=== PATIENT | male | born 1965 | race African-American/Black ===

== ENCOUNTER → 2017-01-11 | Outpatient (CLI) | payer MEDICAID ==
[~2017-01-11] MED LIST: ASPIRIN (CHILDR81 MG PO; BRILINTA90 MG PO; COREG6.25 MG PO; GLUCOPHAGE XR750 M1 PO; GLUCOTROL10 MG PO; HYDRODIURIL25 MG PO; ISONIAZID300 MG PO; LIPITOR80 MG PO; LOVASTATIN40 MG PO; MOBIC15 MG PO; NICODERM CQ1 EAC2 TRANS; TRESIBA FL200 UNIT/1 SUB-Q; VASOTEC10 MG PO; VITAMIN B-650 MG PO
[2017-01-11 12:03] LABS: ALBUMIN 4.2 gm/dL (3.5-5.0); ALK PHOS 104 IU/L (33-138); ALT 39 IU/L (12-78); ANION GAP 8.2 (10.0-19.0); AST 24 IU/L (10-40); BLOOD UREA NITROGEN 15 mg/dL (6-24); CALCIUM 9.1 mg/dL (8.5-10.5); CHLORIDE 105 mMol/L (96-110); CO2 32 mMol/L (22-32); CREATININE 0.9 mg/dL (0.6-1.3); ESTIMATED GFR (MDRD EQUATION) > 60; POTASSIUM 4.2 mMol/L (3.7-5.1); SODIUM 141 mMol/L (135-145); TOTAL BILIRUBIN 0.7 mg/dL (0.0-1.5); TOTAL PROTEIN 7.8 g/dL (6.0-8.4)
== END | disposition disaster alternative care site (69) ==
LOC: GLAB 11:09
PROVIDERS: Psychiatry & Neurology Neurology
DX: Z02.89 Encounter for other administrative examinations (principal); Z11.59 Encounter for screening for other viral diseases; E11.9 Type 2 diabetes mellitus without complications; A51.1 Primary anal syphilis

== ENCOUNTER → 2017-03-04 | Outpatient (CLI) | payer MEDICARE, MEDICAID | END | disposition disaster alternative care site (69) | LOC: GRAD 07:59 | DX: M25.562 Pain in left knee (principal); S81.012A Laceration without foreign body, left knee, initial encounter; M25.462 Effusion, left knee ==

== ENCOUNTER → 2017-03-18 | Outpatient (CLI) | payer MEDICARE, MEDICAID ==
[2017-03-18 11:21] LABS: CPK 151 IU/L (35-332)
== END | disposition disaster alternative care site (69) ==
LOC: LNHI 11:00
PROVIDERS: Internal Medicine Cardiovascular Disease
DX: Z01.818 Encounter for other preprocedural examination (principal); E78.5 Hyperlipidemia, unspecified; I10 Essential (primary) hypertension; R76.11 Nonspecific reaction to tuberculin skin test without active tuberculosis

== ENCOUNTER 2017-03-19 07:44 | Outpatient (CLI) | payer MEDICARE, MEDICAID ==
[~2017-03-19] VITALS: Ht 185.4 cm; Wt 76.0 kg
--- NOTE | ~2017-03-19 | CATH ---
Cardiac Diagnostic + PCI Report Demographics Patient Name BANDAR Quezada Gender Male Date of 1965 Age 52 year(s) Patient Number [id number] Date of Study 03/19/2017 Visit Number [id number] Room Number [id number] [place] [id number] Ht 185.42 cm Wt 74.7 kg Referring Ulises Barb Alejandra Primary Physician Physician TEO Performing Efstratiou Secondary Physician Physician Renee Quezada MD Diagnostic Efstratiou Assisting Physician Physician Renee Quezada MD Interventional Efstratiou Physician Insurance Advisor Physician Renee Quezada MD Findings and Conclusions Diagnostic Findings and Conclusion Long RCA stenosis. Functionally occluded LAD with R to L collaterals. Non critical Circ stenosis. Diagnostic Recommendations PCI to LAD. Stress test for RCA ischemia in 1 month. Interventional Findings and Conclusion Successful CARMEN to LAD. Interventional Recommendations ASA and Ticagrelor x 3 months before knee operation. Procedure Description The patient was brought to the diagnostic cardiac catheterization-EP laboratory in the fasting, non-sedated state. Informed consent was obtained in the written and verbal form after the risks and benefits were explained. The patient had no further questions and agreed to proceed. The planned puncture-incision site(s) were shaved and prepped with ChloraPrep and draped in the usual sterile manner. Conscious sedation, supplemental oxygen, and pain control medications were delivered by a registered nurse under physician guidance. Surface ECG rhythm, blood pressure measurement, and pulse oximetry were monitored throughout the procedure. Arterial access. The access site was infiltrated with lidocaine. The vessel was entered with the Seldinger technique. A sheath was advanced into the vessel and used for catheter placement. Selective left coronary angiography. A catheter was advanced into the left coronary vessel ostium under Fluoroscopic guidance. Contrast was injected by hand. Images were obtained in multiple projections. Selective right coronary angiography. A catheter was advanced into the right coronary vessel ostium under fluoroscopic guidance. Contrast was injected by hand. Images were obtained in multiple projections. Left heart catheterization. A catheter was advanced across the aortic valve to the left ventricle under fluoroscopic guidance. Resting hemodynamics were obtained. Angioplasty and Stent Placement: A guiding catheter was used to intubate the vessel. A 0.14 wire was then used to cross the lesion. A balloon catheter was placed across the lesion and inflated. The balloon catheter was then removed. A Drug Eluting Stent was placed and inflated. Post placement angiograms were performed. Arterial artery hemostasis was achieved. The patient was transferred to a regular nursing floor via cart accompanied by a nurse. The patient left the laboratory in stable condition. Diagnostic Cath Status: Elective Interventional Cath Status: Elective Procedure Procedure Type Diagnostic procedure:Angiography:, Coronary Angios PCI procedure:Drug Eluting Coronary Stent:, LAD Indications: Abnormal ECG and Abnormal Echo. The procedure was explained in detail to the patient. Risks, complications and alternative treatments were reviewed. Written consent was obtained. Medications Reviewed with Patient prior to Procedure. Angiographic Findings Dominance: Right Cardiac Arteries and Lesion Findings LMCA: Normal (0% Stenosis). LAD: Lesion on Mid LAD: Proximal subsection.99% stenosis 28 mm length reduced to 0%. Pre procedure JOANN I flow was noted. Post Procedure JOANN III flow was present. The guidewire cross was successful.The lesion was diagnosed as a high risk lesion.Culprit lesion. Treatment results:Interventional treatment was successful. Devices used - Whisper Wire .014 x 190. Number of passes: 1. - Emerge Balloon 2.5 x 12. 1 inflation(s) to a max pressure of: 14 hanna. - Promus Premier 3.0 x 28 Stent. 1 inflation(s) to a max pressure of: 14 hanna. - NC Emerge Balloon 3.25 x 15. 2 inflation(s) to a max pressure of: 20 hanna. Lesion on Prox LAD: 30% stenosis . LCx: Lesion on Mid CX: 30% stenosis . Lesion on 1st Ob Ashley% stenosis . RCA: Lesion on Prox RCA: 75% stenosis . Lesion on Mid RCA: 60% stenosis . Lesion on Dist RCA: 60% stenosis . Lesion on R PDA: 50% stenosis . Coronary Tree Procedure Data Procedure Date Date: 03/19/2017Start: 11:03 AMEnd: 11:46 AM Entry Locations - Retrograde Percutaneous access was performed through the Right Radial artery (Primary location). A 6 Fr sheath was inserted. Hemostasis was successfully obtained using Mechanical Compression. Closure Comments: R band with 15 cc air deployed by RT. Casimiro. Procedure Medications Order and Administration + + +--------+-------+ !Time !Medication !Dosage !Route ! + + +--------+-------+ !03/19/2017 !Versed !1 mg !I.V. ! !10:59 AM ! ! ! ! + + +--------+-------+ !03/19/2017 !Fentanyl !50 mcg !I.V. ! !10:59 AM ! ! ! ! + + +--------+-------+ !03/19/2017 !PAE Radial Cocktail: Heparin 5000 units, ! !I.A. ! !11:07 AM !Nitroglycerin 200mcg, Verapamil 3 mg ! ! ! ! !(ACC_3) ! ! ! + + +--------+-------+ !03/19/2017 !Heparin (ACC_3) !4000 !I.V. ! !11:17 AM ! !units ! ! + + +--------+-------+ !03/19/2017 !Versed !1 mg !I.V. ! !11:18 AM ! ! ! ! + + +--------+-------+ !03/19/2017 !Integrilin (ACC_7) !20 mg !I.C. ! !11:23 AM ! ! ! ! + + +--------+-------+ !03/19/2017 !Brilinta (Ticagrelor) (ACC_20) !180 mg !P.O. ! !11:37 AM ! ! ! ! + + +--------+-------+ Devices Used - A6 Fr. BS JR 4 Diag. Catheterwas used for:Right coronary angiography. - A6 Fr. BS JL 3.5 Diag. Catheterwas used for:Left coronary angiography. - A6 Fr. XBLAD 3.5 Guide Catheterwas used for:LAD Intervention. Contrast Material - Isovue [id number] ml Fluoroscopy Time: Diagnostic: 7:24 minutes. Total: 7:24 minutes. Fluoroscopy Dose: Diagnostic: 741 mGy. Total: 741 mGy. Estimated Blood Loss: 20 ml. Additional [facility] PCI Information PCI Indication:PCI for high risk Non-STEMI or unstable angina. Medical History Allergies - Codiene. Risk Factors The patient risk factors include:hypertension, diabetes mellitus, last creatinine: 0.9 mg/dl, creatinine clearance: 101.44 ml/min, dyslipidemia and Current/Recent(w/in 1 year) tobacco use. Admission Data Admission Date: 03/19/2017 Admission Time: 07:44 AM Admit Source: Other Insurance Payors: Medicare. Admission Medications + +------+-------+ + + + + !Medication!Dosage!Times !Last !Last !Administered !Comments ! ! ! !Per Day!Delivery !Delivery ! ! ! ! ! ! !Date !Time ! ! ! + +------+-------+ + + + + !Statin ! ! ! ! !Yes ! ! !(any) ! ! ! ! ! ! ! + +------+-------+ + + + + Clinical Evaluation Leading to Procedure - There were no CAD presentation symptoms. - There were no anginal symptoms. 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 Snapshots Hemodynamics Condition: Rest O2 Consumption: Estimated: 237.93Heart Rate: 73 bpm Pressures (mmHg) +-----+ + !Site !Pressure ! +-----+ + !LV !111/1 ,12 ! +-----+ + !LV !106/0 ,12 ! +-----+ + !AO ! () ! +-----+ + !LV !105/0 ,12 ! +-----+ + !AO ! () ! +-----+ + !AO !108/70 (87) ! +-----+ + Valve Gradients and Areas + +---------+---------+---------+ +---------+ + !Valve !Peak !Mean !Area !Index !Flow !Source ! + +---------+---------+---------+ +---------+ + !Aortic !0 !0 ! ! ! ! ! + +---------+---------+---------+ +---------+ + !Aortic !0 !0 ! ! ! ! ! + +---------+---------+---------+ +---------+ + Shunts Oxygen Values O2 Capacity 197.2 O2 Consumption 237.93 Signatures dtt: Riri Apodaca dtd: 03/19/17 1103 Physician Self Edit
[~2017-03-19 07:44] MED LIST changes: -ASPIRIN (CHILDR81 MG PO; -BRILINTA90 MG PO; -COREG6.25 MG PO; -LIPITOR80 MG PO; -NICODERM CQ1 EAC2 TRANS
[2017-03-19 09:26] LABS: BASOPHIL # 0.1 K/uL (0.0-0.2); BASOPHIL % 0.8 %; EOSINOPHIL # 0.1 K/uL (0.0-0.5); HEMATOCRIT 41.2 % (37.0-53.0); HEMOGLOBIN 14.5 g/dL (12.0-17.0); IMMATURE GRANULOCYTE % 0.2 %; LYMPHOCYTE # 1.9 K/uL (0.8-4.0); LYMPHOCYTE % 29.2 %; MCH 31.7 pg (27.0-34.0); MCHC 35.2 gm/dL (32.0-36.5); MCV 90.2 fl (83.0-98.0); MONOCYTE # 0.8 K/uL (0.0-1.0); MONOCYTE % 11.3 %; MPV 10.9 fl (9.4-12.4); NEUTROPHIL # (ANC) 3.7 K/uL (1.4-9.0); NEUTROPHIL % 56.5 %; NRBC % 0 /100WBC (0-0.00); PLATELET COUNT 212 K/uL (150-450); RBC 4.57 M/uL (4.00-6.00); RDW-CV 11.9 % (11.9-14.6); WBC 6.6 K/uL (4.0-11.0)
[2017-03-19 09:31] LABS: INR - (THERAPEUTIC) 1.02 (0.92-1.07); PROTIME 10.7 SECONDS (9.8-11.4); PTT 26 SECONDS (25-32)
[2017-03-19 09:42] LABS: ALBUMIN 4.1 gm/dL (3.5-5.0); ALK PHOS 111 IU/L (33-138); ALT 47 IU/L (12-78); ANION GAP 11.3 (10.0-19.0); AST 29 IU/L (10-40); BLOOD UREA NITROGEN 17 mg/dL (6-24); CALCIUM 9.3 mg/dL (8.5-10.5); CHLORIDE 102 mMol/L (96-110); CO2 27 mMol/L (22-32); CREATININE 0.9 mg/dL (0.6-1.3); POTASSIUM 4.3 mMol/L (3.7-5.1); SODIUM 136 mMol/L (135-145); TOTAL BILIRUBIN 0.6 mg/dL (0.0-1.5)
[2017-03-19 09:43] LABS: ESTIMATED GFR (MDRD EQUATION) > 60
[2017-03-19 14:34] LABS: CPK 118 IU/L (35-332)
[2017-03-20 07:01] LABS: ALBUMIN 3.8 gm/dL (3.5-5.0); ALK PHOS 107 IU/L (33-138); ALT 46 IU/L (12-78); AST 32 IU/L (10-40); BLOOD UREA NITROGEN 15 mg/dL (6-24); CALCIUM 9.4 mg/dL (8.5-10.5); CHLORIDE 104 mMol/L (96-110); CO2 27 mMol/L (22-32); CREATININE 0.8 mg/dL (0.6-1.3); ESTIMATED GFR (MDRD EQUATION) > 60; SODIUM 138 mMol/L (135-145); TOTAL BILIRUBIN 0.6 mg/dL (0.0-1.5); TOTAL PROTEIN 7.7 g/dL (6.0-8.4)
[2017-03-20] MEDS ORDERED: ASPIRIN (CHILDR81 MG PO (09:00)
[2017-03-20] MEDS ORDERED: LIPITOR80 MG PO (09:01)
[2017-03-20] MEDS ORDERED: COREG6.25 MG PO (09:02)
[2017-03-20] MEDS ORDERED: NICODERM CQ1 EAC2 TRANS (09:14)
[2017-03-20] MEDS ORDERED: BRILINTA90 MG PO (09:16)
== END 2017-03-20 09:55 | disposition disaster alternative care site (69) ==
LOC: GCAT 07:44 → GPCU 07:44 → GCAT 08:00 → GPCU 11:17 → GCAT 16:00
PROVIDERS: Internal Medicine Cardiovascular Disease
PROC: 4A023N7 Measurement of Cardiac Sampling and Pressure, Left Heart, Percutaneous Approach (ICD-10-PCS; principal; 2017-03-19)
PROC: B216YZZ Fluoroscopy of Right and Left Heart using Other Contrast (ICD-10-PCS; 2017-03-19)
DX: R94.31 Abnormal electrocardiogram [ECG] [EKG] (principal); I25.10 Atherosclerotic heart disease of native coronary artery without angina pectoris; E11.65 Type 2 diabetes mellitus with hyperglycemia
CPT/HCPCS: C1725; C1769; C1874; C1887; C1894; C9600; J1644; J2001; J2250; J3010; J7030

== ENCOUNTER → 2017-04-16 | Outpatient (CLI) | payer MEDICARE, MEDICAID ==
[~2017-04-16] MED LIST changes: +ASPIRIN (CHILDR81 MG PO; +BRILINTA90 MG PO; +COREG6.25 MG PO; +LIPITOR80 MG PO; +NICODERM CQ1 EAC2 TRANS
--- NOTE | ~2017-04-16 | ESTC ---
Cardiac Perfusion Imaging Demographics Patient Name BANDAR Quezada Gender Male Patient Number [id number] Race Black Visit Number [id number] [place] [id number] Room Number Accession Number [id number] Height Date of 1965 Weight Age 52 year(s) BSA Referring Physician Ulises Alejandra ARMATURE TESTER BMI Paulie Quezada MD Interpreting Paulie Duran Date of study 04/16/2017 Physician Damien Wagoner MD Supervising MD/MLP NM Technologist Geo Jean-Baptiste Ordering Physician Stress mechanical engineering technician Stress ECG Reading Paulie Duran Nurse Suhail Cano Physician Damien LIM RN Camron Okeefe RN The procedure was explained in detail to the patient. Risks, complications and alternative treatments were reviewed. Written consent was obtained. Medications Reviewed with Patient prior to Procedure. Procedure Procedure Type: Nuclear Stress Test:Exercise, Cardiolite Stress Test Procedure Start time: 04/16/2017 00:00 Indications: Chest pain. Risk Factors The patient risk factors include:prior PCI;Current/Recent(w/in 1 year) tobacco use, hypertension, diabetes mellitus and dyslipidemia. Conclusions Impression ECG portion of the lexiscan stress test is clinically negative for ischemia by diagnostic criteria. Myocardial perfusion imaging is mildly abnormal. The images reveal a small sized, moderately reversible defect in the apical apical anterior wall wall consistent with ischemia in the territory of the left anterior descending artery . Overall left ventricular systolic function was normal. Calculated LVEF is 54% and TID ratio is 1.04. This is a intermediate risk stress test. Stress Protocols Resting ECG SR early repolarization Pre-stress physical exam: Patient assessed by Dr Apodaca prior to testing. Stress Protocol:Pharmacologic Predicted HR: 168 bpm ECG Findings No ECG changes suggestive of ischemia. Arrhythmias No rhythm abnormality. Symptoms Shortness of breath. Nausea. Stress Interpretation Appropriate hemodynamic response to Lexiscan. No significant ST-T wave changes with Lexiscan. ECG portion is negative for ischemia by diagnostic criteria. Imaging Results Summed scores - Summed stress score: 2 - Summed rest score: 3 - Summed difference score: -1 Stress ejection Ejection fraction:54 % EDV :87 ml ESV :40 ml Stroke volume :47 ml LV mass :133 gr Imaging Protocols Rest Stress Isotope:Tc99m Sestamibi IV Isotope: Tc99m Sestamibi IV Isotope dose:11 mCi Isotope dose:34.8 mCi Date:04/16/2017 07:24 Date:04/16/2017 09:11 Technique: SPECT Technique: Gated Supine SPECT Supine Scan Time:45-60 minutes post Scan Time:45-60 minutes post injection injection Procedure Medications - Regadenoson (Lexiscan) 0.4 mg IV over 10-15 sec. I.V. 0.4 mg. Medical History Admission Data Admission date: 04/16/2017 Admission Time: 07:10 Hospital Status: Outpatient. Signatures dtt: Riri Apodaca dtd: 04/16/17 0000 Physician Self Edit
== END | disposition disaster alternative care site (69) ==
LOC: GRAD 07:10
DX: I25.119 Atherosclerotic heart disease of native coronary artery with unspecified angina pectoris (principal); M25.569 Pain in unspecified knee; I10 Essential (primary) hypertension; E11.9 Type 2 diabetes mellitus without complications; E78.5 Hyperlipidemia, unspecified; R07.9 Chest pain, unspecified; Z72.0 Tobacco use; Z98.61 Coronary angioplasty status
CPT/HCPCS: A9500; J2785

== ENCOUNTER → 2017-04-28 | Outpatient (CLI) | payer MEDICARE, MEDICAID | END | disposition disaster alternative care site (69) | LOC: GRAD 12:14 | DX: R91.1 Solitary pulmonary nodule (principal); N28.1 Cyst of kidney, acquired; R91.8 Other nonspecific abnormal finding of lung field ==

== ENCOUNTER → 2017-05-05 | Outpatient (CLI) | payer MEDICARE, MEDICAID | LOC: LKCL 15:14 | DX: E01.0 Iodine-deficiency related diffuse (endemic) goiter (principal) ==